=== PATIENT | male | born 1950 | race Two or more races ===

== ENCOUNTER → 2024-02-14 13:51 | Outpatient (REF) | payer OTHER, SELFPAY | LOC: RAD 13:51 | PROVIDERS: ATTENDING PHYSICIAN Surgery Vascular Surgery; FAMILY PHYSICIAN Family Medicine | DX: N18.6 End stage renal disease (principal) | CPT/HCPCS: 93985 ==

== ENCOUNTER 2024-02-23 08:25 | Day surgery (SDC) | payer OTHER, SELFPAY ==
[2024-02-23] VITALS (13 sets, daily range): BP systolic 105–153; BP diastolic 56–76
[2024-02-23] MEDS: PERIDEX 0.12% ORAL RINSE 15 ML PO (09:18)
[2024-02-23] MEDS: BACTROBAN NASAL 1 GRAM NASAL (09:18)
[2024-02-23] MEDS: NSS 500 IV (09:19)
[2024-02-23 09:32] LABS: Hematocrit 36.2 % (39.0-52.0); Mean Corp Hgb Conc. 33.1 g/dL (33.0-37.0); Mean Corpuscular Hgb 28.8 pg (27.0-31.0); Platelet Count 200 10^3/uL (130-400); Red Blood Cell Count 4.16 10^6/uL (4.70-6.10); Red Cell Dist. Width 18.1 % (11.5-14.5); White Blood Cell Count 7.2 10^3/uL (4.8-10.8)
[2024-02-23 09:42] LABS: INR 1.04; PT 13.4 Sec (11.4-14.6)
[2024-02-23 09:43] LABS: APTT 33.6 Sec (23.4-35.0)
[2024-02-23 09:51] LABS: Blood Urea Nitrogen 39 mg/dl (9-20); Calcium 10.1 mg/dl (8.4-10.2); Carbon Dioxide 22 mmol/L (22-30); Chloride 101 mmol/L (98-107); Glucose 71 mg/dl (70-99); Sodium 139 mmol/L (135-145)
--- NOTE | 2024-02-23 10:00 | W.SUR.PREOP ---
Pre-Operative Surgical Note
-
I have examined this patient prior to the performance of the scheduled procedure.
The patient's condition is unchanged from the time of the current History and
Physical and the patient is able to undergo the scheduled procedure.
--- NOTE | 2024-02-23 13:36 | OR.RPT ---
Operative Report
Operative Report
Date of Operation: 02/23/2024
Pre Op Diagnosis: End-stage renal disease requiring hemodialysis
Post Op Diagnosis: End-stage renal disease requiring hemodialysis
Procedure: Creation of left upper arm AV graft for hemodialysis
Surgeon: Vinicius Contreras III, MD
Transportation Department Head: Luke Mcgrath MD PhD, PGY2
Anesthesia: General
Complications: None
Estimated Blood Loss: 100 cc
History and Indications for Procedure: 73-year-old male with end-stage renal disease requiring hemodialysis. He was brought to the operating arteriovenous access creation
Procedure in Detail: Long Howard was correctly identified and placed supine on the operating table. After adequate induction of anesthesia the left arm was positioned, prepped and draped in the usual sterile fashion. Preoperative antibiotics were
administered. A timeout procedure was performed with the nursing and anesthesia staff confirming the patients identity as well as the nature and laterality of the procedure.
I performed ultrasound on the superficial veins of the left arm. No adequate superficial vein was identified to be used for arteriovenous fistula creation. Therefore we proceeded with creation of AV graft. Just proximal to the antecubital fossa
over the brachial pulse a vertical incision was made. Electrocautery was used to divide the subcutaneous tissue. The brachial artery was sharply exposed and proximal and distal control was obtained with vessel loops .
Over the medial upper arm near the axilla another incision was made. Electrocautery was used on the subcutaneous tissue. The axillary vein was dissected out at this level and proximal and distal control was obtained with vessel loops.
A gentle curved tunnel was created between the 2 incisions over the lateral arm. A 4-7 mm tapered Propaten graft was brought carefully through the tunnel keeping the correct orientation. The 4 mm side was for the arterial anastomosis and the 7 mm
side for the venous.
The vessel loops on the brachial artery were secured. A small arteriotomy was created with an 11 blade and extended just slightly proximally and distally with Fabian scissors to accommodate the 4 mm graft anastomosis. The proximal and distal artery
were flushed with heparinized saline solution. The 4 mm end of the graft was sewn end-to-side to the brachial artery with a running 7-0 Prolene suture. At the completion of the anastomosis the proximal brachial artery vessel loop was released
first. There was excellent pulsatile bleeding from the 7 mm end of the graft. The distal vessel loop was then released. The graft was back flushed with heparinized saline solution and a clamp was placed on the graft just off the arterial
anastomosis.
The vessel loops on the vein were then secured. A venotomy was made with an 11-blade and extended proximally and distally with Afbian scissors. The 7 mm end of the graft was cut and bevelled appropriately and an end to side anastomosis was created
using a running 7-0 Prolene suture. At the completion of the anastomosis the vessel loops were released.
There was a good pulse in the brachial artery proximal and distal to the suture line. There was an easily palpable thrill in the graft along the entire course in the upper arm. The patient had a palpable radial pulse at the wrist at the conclusion
of the case. Both suture lines were inspected for hemostasis which was achieved.
The wounds were then irrigated with warm saline. Hemostasis was achieved in the wound beds. The wounds were closed in layers and sterile dressings applied.
The patient tolerated the procedure well and was taken to the PACU in stable condition.
Attestation: I was present and responsible for the entire procedure
Signed:
Vinicius Contreras III, MD
[facility] Vascular Surgery
[phone] (wzqe)
[2024-02-23] MEDS: ROXICODONE 5 MG PO (15:32)
--- NOTE | 2024-02-23 18:25 | W.IMMPOSTOP ---
Surgical Immed Post Op Note
-
Primary Surgeon: Dr. Vinicius Contreras III, MD
Assisting Surgeon: Luke Mcgrath MD, PhD (PGY-2)
Pre-op Diagnosis: ESRD on dialysis
Post-op Diagnosis: ESRD on dialysis
Procedure Performed: LUE fistula creation with 4-7 mm propaten graft
Anesthesia Type: General
Specimen / Cultures: None
Estimated Blood Loss: 100cc
Complications: None
Operative Findings: The patient was brought to the OR and ultrasound mapping was performed to map the vessels of the LUE. The LUE was prepped and draped in usual sterile fashion. An incision was made near the antecubital fossa and the brachial
artery was isolated with sharp dissection. A separate incision was made in the medial upper arm over the axillary vein. Sharp dissection was performed to isolate the axillary vein. Proximal and distal control was obtained with vessel loops around
the brachial artery and axillary vein. A tunneler was brought to the field and a tunnel was created. A 4-7mm propaten graft was passed through the tract. Some venous bleeding was noted in the tract. Hemostatic agents were placed at the distal aspect
of the tract and the site was packed. An arteriotomy was created and extended with Fabian scissors. An end to side anastomosis was made between the 4mm segment of the graft to the brachial artery with a running 7-0 prolene suture. Then a venotomy was
made and extended at the axillary vein site. This was used to perform the end to side anastomosis with the 7mm end of the graft with a running 7-0 prolene suture. Both anastomotic sites were checked for hemostasis, which was confirmed. Hemostasis
was also achieved in the tract and DDAVP was given. Both incision sites were closed with running 3-0 and 4-0 sutures followed by skin glue. At the conclusion of the case a palpable radial artery was noted and there was an excellent thrill along the
entire segment of the graft.
== END 2024-02-23 15:50 | disposition home or self-care (01) ==
LOC: CATH 08:25
PROVIDERS: ATTENDING PHYSICIAN Surgery Vascular Surgery; FAMILY PHYSICIAN Family Medicine; OTHER PHYSICIAN Internal Medicine Cardiovascular Disease
DX: N18.6 End stage renal disease (principal); Z99.2 Dependence on renal dialysis; Z79.02 Long term (current) use of antithrombotics/antiplatelets; Z79.82 Long term (current) use of aspirin; Z79.899 Other long term (current) drug therapy; Z86.73 Personal history of transient ischemic attack (TIA), and cerebral infarction without residual deficits
CPT/HCPCS: 36821; 36830; 80048; 85027; 85610; 85730; 93005; J2597

== ENCOUNTER → 2024-04-15 08:14 | Outpatient (REF) | payer OTHER, SELFPAY | LOC: RAD 08:14 | PROVIDERS: ATTENDING PHYSICIAN Registered Nurse | DX: N18.6 End stage renal disease (principal); Z99.2 Dependence on renal dialysis | CPT/HCPCS: 93990 ==

== ENCOUNTER 2024-05-06 09:35 | Day surgery (SDC) | payer OTHER, SELFPAY ==
[2024-05-06] VITALS (11 sets, daily range): BP systolic 10–143; BP diastolic 53–76; BMI 21.6
[2024-05-06 10:39] LABS: Hematocrit 34.5 % (39.0-52.0); Hemoglobin 10.9 g/dL (13.0-18.0); Mean Corp Hgb Conc. 31.6 g/dL (33.0-37.0); Mean Corpuscular Hgb 30.8 pg (27.0-31.0); Mean Corpuscular Volume 97.5 fL (80.0-94.0); Mean Platelet Volume 11.5 fL (7.4-10.4); Platelet Count 195 10^3/uL (130-400); Red Blood Cell Count 3.54 10^6/uL (4.70-6.10); Red Cell Dist. Width 16.8 % (11.5-14.5); White Blood Cell Count 8.4 10^3/uL (4.8-10.8)
[2024-05-06 10:49] LABS: INR 0.94; PT 12.9 Sec (11.4-14.6)
[2024-05-06 10:50] LABS: APTT 23.2 Sec (23.4-35.0)
--- NOTE | 2024-05-06 11:19 | PTCARENOTE ---
SST redraw and sent at 1115hrs. pt queta all well.
[2024-05-06 11:57] LABS: Blood Urea Nitrogen 64 mg/dl (9-20); Calcium 9.7 mg/dl (8.4-10.2); Carbon Dioxide 29 mmol/L (22-30); Chloride 97 mmol/L (98-107); Estimated Creatinine Clearance 5 ml/min; Glucose 69 mg/dl (70-99); Sodium 140 mmol/L (135-145); eGFR 5.96
--- NOTE | 2024-05-06 12:06 | SUR.OPER ---
[employer]CE WORKER advisedof critical creatgilbert 8.7. No new orders.
--- NOTE | 2024-05-06 13:30 | W.IMMPOSTOP ---
Surgical Immed Post Op Note
-
05/06/2024
Surgeon: Diane
Assisting Surgeon: Josefa
Pre-op Diagnosis: Venous outflow stenosis LUE AVG
Post-op Diagnosis: Venous outflow stenosis LUE AVG
Procedure Performed: LUE fistulogram, balloon angioplasty venous outflow stenosis, removal of Right chest wall TDC
Anesthesia Type: sedation/local
Specimen / Cultures: None.
Estimated Blood Loss: 10 cc
Complications: None
Operative Findings: Mild residual stenosis on completion. Excellent thrill in the graft.
[2024-05-06] MEDS: TYLENOL 650 MG PO (15:07)
--- NOTE | 2024-05-06 15:44 | OR.RPT ---
Operative Report
Operative Report
Date of Operation: 05/06/2024
Pre Op Diagnosis:
1. Suspected venous outflow stenosis of left upper extremity AV graft
2. End-stage renal disease requiring hemodialysis
Post Op Diagnosis:
1. Suspected venous outflow stenosis of left upper extremity AV graft
2. End-stage renal disease requiring hemodialysis
Procedure:
1. Drug-coated balloon angioplasty of venous outflow stenosis, left upper extremity (7 mm x 40 mm Lutonix)
2. Left upper extremity fistulogram
3. Central venogram
4. Removal of right chest wall tunneled dialysis catheter
5. Ultrasound-guided percutaneous access to the left upper extremity graft
Surgeon: Vinicius Contreras III, MD
Estimator Binding: Charlie Rivero MD PGY1
Anesthesia: Sedation/local
Complications: None
Fluoroscopy:
5.7 minutes
15 mGy
2.84 DAP
History and Indications for Procedure: 73-year-old male with suspected venous outflow stenosis of left upper extremity AV graft.
Procedure in Detail: Long Howard was correctly identified and placed supine on the operating table. After adequate induction of anesthesia the left arm was positioned, prepped and draped in the usual sterile fashion. Preoperative antibiotics were
administered. A timeout procedure was performed with the nursing and anesthesia staff confirming the patient�s identity as well as the nature and laterality of the procedure.
Intraoperative ultrasound was performed on the AV access. This was a left upper extremity AV graft. Ultrasound demonstrated a patent graft.
I identified a puncture site along the mid graft and infiltrated local anesthesia at this site. Under ultrasound guidance I accessed the graft with a micropuncture needle facing towards the venous outflow and placed the micropuncture sheath. I
performed a fistulogram which demonstrated the following:
Fistulogram: Patent graft. High-grade stenosis at the venous anastomosis.
Venous outflow: Patent venous outflow with no additional stenoses identified
Central venogram: Patent central venous system with no stenosis identified
Endovascular intervention:
Systemic heparin was administered. A short 5 Fr sheath was placed over a Bentson wire. Under roadmap guidance a Bentson wire was used to cross the stenosis. I then brought a 7 mm x 40 mm Lutonix drug-coated angioplasty balloon into position under
roadmap guidance and centered this across the stenosis. This was inflated to nominal pressure and held in place for 3 minutes. A reflux fistulogram was performed while the balloon was inflated in the venous outflow. The remainder of the proximal
graft was patent. Contrast refluxed across the arterial anastomosis which was patent and no significant stenosis was identified. The balloon was then taken down and removed over the wire. Subsequent images demonstrated an improved result with a
widely patent graft, brisk flow across the venous anastomosis and only minimal residual stenosis identified.
At the conclusion of the procedure a Monocryl suture was placed around the sheath puncture site. The sheath was removed and the suture secured. Hemostasis was achieved. A sterile dressing was applied.
I then focused my attention on the tunneled dialysis catheter. The right chest wall and dialysis catheter exit site were prepped in the usual sterile fashion. Local anesthesia was infiltrated into the skin exit site as well as the area around the
palpable cuff. The sutures were removed. A hemostat was inserted through the skin exit site and the subcutaneous tract was dilated around the catheter and the cuff. This was freed from the surrounding tissue and the catheter was easily removed.
The catheter and catheter tip was closely inspected and was fully intact. Direct manual pressure was then held over the puncture site and tract for 5 minutes. Hemostasis was achieved. A sterile dressing was applied.
The patient tolerated the procedure well and was taken to the PACU in stable condition
Attestation: I was present and responsible for the entire procedure
Signed:
Vinicius Contreras III, MD
[facility] Vascular Surgery
[phone] (yawt)
== END 2024-05-06 15:30 | disposition home or self-care (01) ==
LOC: CATH 09:35
PROVIDERS: ATTENDING PHYSICIAN Surgery Vascular Surgery; FAMILY PHYSICIAN Family Medicine; OTHER PHYSICIAN Internal Medicine Cardiovascular Disease
DX: T82.858D Stenosis of other vascular prosthetic devices, implants and grafts, subsequent encounter (principal); Y83.2 Surgical operation with anastomosis, bypass or graft as the cause of abnormal reaction of the patient, or of later complication, without mention of misadventure at the time of the procedure; N18.6 End stage renal disease; Z99.2 Dependence on renal dialysis; Z86.73 Personal history of transient ischemic attack (TIA), and cerebral infarction without residual deficits; I48.91 Unspecified atrial fibrillation; Z79.82 Long term (current) use of aspirin; Z79.02 Long term (current) use of antithrombotics/antiplatelets; Z79.899 Other long term (current) drug therapy
CPT/HCPCS: 36902; 36589; 80048; 85027; 85610; 85730; C1769; C1894; C2623; Q9967